=== PATIENT | male | born 1960 | race Caucasian/White ===

== ENCOUNTER 2017-03-28 22:23 | Emergency (ER) | payer BC ==
--- NOTE | 2017-03-28 22:58 | EDM.PDOC ---
ED HPI GENERAL MEDICAL PROBLEM - General Chief Complaint: General Stated Complaint: COUGH Time Seen by Provider: 03/28/17 22:50 - History of Present Illness INITIAL COMMENTS - FREE TEXT/NARRATIVE: HISTORY AND PHYSICAL: History of present illness: The patient is a 56-year-old male with no stated medical history and presents with a week history of fevers feeling and chills and diarrhea with some vomiting and posttussive vomiting. He says that the diarrhea has significantly improved with [id number] Pepto-Bismol and is no longer having any vomiting and is tolerating fluids. He's concerned because he is coughing occasionally productive of phlegm and he has the fevers and chills as well as body aches. Patient did not get his flu shot this year. Patient is a smoker. The patient says he is not having any chest or abdominal pain Review of systems: As per history of present illness and below otherwise all systems reviewed and negative. Past medical history: As per history of present illness and as reviewed below otherwise noncontributory. Surgical history: As per history of present illness and as reviewed below otherwise noncontributory. Social history: No reported history of drug or alcohol abuse. Family history: As per history of present illness and as reviewed below otherwise noncontributory. Physical exam: Gen.: Well-developed well-nourished man who is nontoxic and speaking without breathlessness or nasal quality to voice. Vital signs of an reviewed by me HEENT: Atraumatic, normocephalic, pupils reactive, negative for conjunctival pallor or scleral icterus, mucous membranes moist, throat clear, neck supple, nontender, trachea midline. There is no cervical adenopathy or nuchal rigidity Lungs: Clear to auscultation, breath sounds equal bilaterally, chest nontender. No worker breathing or sensory muscle use Heart: S1S2, regular, negative for clicks, rubs, or JVD. Abdomen: Soft, nondistended, nontender. Negative for masses or hepatosplenomegaly. NABS Pelvis: Stable nontender. Genitourinary: Deferred. Rectal: Deferred. Extremities: Atraumatic, negative for cords or calf pain. Neurovascular unremarkable. Neuro: Awake, alert, oriented. Cranial nerves II through XII unremarkable. Cerebellum unremarkable. Motor and sensory unremarkable throughout. Exam nonfocal. Diagnostics: Chest x-ray CBC CMP influenza Therapeutics: Spacer And spacer teaching I discussed with the patient all testing results and care plan for home. We will treat this as a bronchitis and I will give him an albuterol inhaler as well as a course of antibiotics. Patient says he has a provider at a local clinic but I will give him referrals to ours as well. Impression: Acute bronchitis/viral syndrome Definitive disposition and diagnosis as appropriate pending reevaluation and review of above. - Related Data Allergies Allergy/AdvReac Type Severity Reaction Status Date / Time No Known Allergies Allergy Verified 09/27/14 09:30 Home Meds: Home Meds Naproxen Sodium [Aleve] 220 mg PO DAILY 09/27/14 [History] Past Medical History - Past Health History Medical/Surgical History: Denies Medical/Surgical History Social & Family History - Tobacco Use Smoking Status *Q: Current Every Day Smoker Years of Tobacco use: 20 Packs/Tins Daily: 0.5 - Caffeine Use Caffeine Use: Reports: None - Recreational Drug Use Recreational Drug Use: No ED ROS GENERAL - Review of Systems Review Of Systems: ROS reveals no pertinent complaints other than HPI. ED EXAM, GENERAL - Physical Exam Exam: See Below (see dictation) Course - Vital Signs Last Recorded V/S: Last Vital Signs Temp 36.5 C 03/28/17 22:46 Pulse 77 03/28/17 22:46 Resp 18 03/28/17 22:46 BP 110/66 03/28/17 22:46 Pulse Ox 96 03/28/17 22:46 - Orders/Labs/Meds Orders: Active Orders 24 hr Category Date Time Status Chest 2V [CR] Stat Exams 03/28/17 22:55 Taken Labs: Laboratory Tests 03/28/17 03/28/17 Range/Units 23:12 23:12 WBC 2.71 L (4.0-11.0) K/uL RBC 4.00 L (4.50-5.90) M/uL Hgb 12.9 L (13.0-17.0) g/dL Hct 37.8 L (38.0-50.0) % MCV 94.5 (80.0-98.0) fL MCH 32.3 H (27.0-32.0) pg MCHC 34.1 (31.0-37.0) g/dL RDW Std Deviation 39.1 (28.0-62.0) fl RDW Coeff of Rene 12 (11.0-15.0) % Plt Count 210 (150-400) K/uL MPV 9.80 (7.40-12.00) fL Neut % (Auto) 45.1 L (48.0-80.0) % Lymph % (Auto) 36.5 (16.0-40.0) % Sully % (Auto) 16.2 H (0.0-15.0) % Eos % (Auto) 1.8 (0.0-7.0) % Baso % (Auto) 0.4 (0.0-1.5) % Neut # (Auto) 1.2 L (1.4-5.7) K/uL Lymph # (Auto) 1.0 (0.6-2.4) K/uL Sully # (Auto) 0.4 (0.0-0.8) K/uL Eos # (Auto) 0.1 (0.0-0.7) K/uL Baso # (Auto) 0.0 (0.0-0.1) K/uL Nucleated RBC % 0.0 /100WBC Nucleated RBCs # 0 K/uL Sodium 139 (136-146) mmol/L Potassium 3.9 (3.5-5.1) mmol/L Chloride 103 (98-110) mmol/L Carbon Dioxide 25 (21-31) mmol/L BUN 19 (6.0-23.0) mg/dL Creatinine 0.8 (0.6-1.5) mg/dL Est Cr Clr Drug Dosing 101.31 mL/min Estimated GFR (MDRD) > 60.0 ml/min Glucose 94 (60-110) mg/dL Calcium 8.7 L (8.8-10.8) mg/dL Total Bilirubin 2.4 H (0.1-1.5) mg/dL AST 29 (5-40) IU/L ALT 30 (8-54) IU/L Alkaline Phosphatase 83 (40-150) Total Protein 6.6 (6.0-8.0) g/dL Albumin 4.0 (3.5-5.0) g/dL Globulin 2.6 (2.0-3.5) g/dL Albumin/Globulin Ratio 1.5 (1.3-2.8) Departure - Departure Time of Disposition: 00:16 Disposition: Home, Self-Care 01 Condition: Good Clinical Impression: Acute bronchitis Qualifiers: Bronchitis organism: unspecified organism Qualified Code(s): J20.9 - Acute bronchitis, unspecified - Discharge Information Referrals: PCP,None [Primary Care Provider] - Forms: ED Department Discharge Additional Instructions: The following information is given to patients seen in the emergency department who are being discharged to home. This information is to outline your options for follow-up care. We provide all patients seen in our emergency department with a follow-up referral. The need for follow-up, as well as the timing and circumstances, are variable depending upon the specifics of your emergency department visit. If you don't have a primary care physician on staff, we will provide you with a referral. We always advise you to contact your personal physician following an emergency department visit to inform them of the circumstance of the visit and for follow-up with them and/or the need for any referrals to a consulting specialist. The emergency department will also refer you to a specialist when appropriate. This referral assures that you have the opportunity for followup care with a specialist. All of these measure are taken in an effort to provide you with optimal care, which includes your followup. Under all circumstances we always encourage you to contact your private physician who remains a resource for coordinating your care. When calling for followup care, please make the office aware that this follow-up is from your recent emergency room visit. If for any reason you are refused follow-up, please contact the [facility] emergency department at and ask to speak to the emergency department charge nurse. [facility] Primary care- Internal Medicine and Family [address] [address] Please use the albuterol inhaler with spacer you have been given as needed for coughing and any shortness of breath. Please use [id number] Mucinex and any other preparations that you choose to help with the cough and body aches. Please take all prescriptions as directed and call and follow-up with your provider in the clinic or one of our clinic doctors in the next 1-2 days. Return to ER as needed and as discussed. You have been given Zithromax via [employer] along with the albuterol - My Orders Last 24 Hours: My Active Orders 03/28/17 22:55 Chest 2V [CR] Stat - Assessment/Plan Last 24 Hours: My Active Orders 03/28/17 22:55 Chest 2V [CR] Stat
[2017-03-28 23:40] LABS: CHLORIDE,CL 103 mmol/L (98-110); SODIUM,NA 139 mmol/L (136-146)
[2017-03-29 00:17] VITALS: BP 106/65
--- NOTE | 2017-03-29 15:13 | CR ---
EXAM DATE: 03/28/17 PATIENT'S AGE: 56 Patient: CARLOS BOWEN Facility: [place], [place] Site . Site : 1960 Study: XRay Chest [id number]/7/[id number] 11:23:21 PM Ordering Physician: Doctor Savage Final Report: INDICATION: Chest pain, shortness of breath. TECHNIQUE: Chest radiograph 2 views COMPARISON: None FINDINGS: Cardiovascular and mediastinum: The heart silhouette is normal in size and morphology. The mediastinum is normal in appearance. Lungs and pleural spaces: Both lungs are unremarkable in appearance. No sign of pleural effusion seen. No pneumothorax is identified. Bones and soft tissues: No significant findings. IMPRESSION: 1. No acute cardiopulmonary disease is seen. Dictated by Jaspreet Barnes MD @ 03/28/2017 11:40:36 PM Dictated by: Jaspreet Barnes MD @ 03/28/2017 23:40:41 (Electronic Signature) Report Signed by Proxy. AARON
== END 2017-03-29 00:30 | disposition home or self-care (01) ==
LOC: MW.ED 22:23
DX: J20.9 Acute bronchitis, unspecified (principal); F17.210 Nicotine dependence, cigarettes, uncomplicated
CPT/HCPCS: 36415; 71046; 71046-26; 80053; 85025; 87804; 99283; 99284